=== PATIENT | male | born 1980 | race Hispanic/Latino ===

== ENCOUNTER 2019-08-27 20:29 | Emergency (ER) | payer BC ==
--- NOTE | 2019-08-27 21:11 | RAD REPORT ---
EXAM DESCRIPTION: RAD - Chest Single View - 08/27/2019 8:58 pm CLINICAL HISTORY: CHEST PAIN TECHNIQUE: AP portable chest image was obtained 08/27/2019 8:58 pm . FINDINGS: Lung volumes are low. No peripheral mass or consolidation. No failure or volume overload s uspected. Heart and vasculature are normal. No measurable pleural effusion and no pneumothorax. No ac [place] bony abnormality seen. No acute aortic findings suspected. IMPRESSION: No acute cardiopulmonary process.
[2019-08-27 21:16] LABS: Absolute Lymphocytes (CBC) 3.3 K/uL (0.7-4.9); Basophils % 0.5 % (0-1.3); Hematocrit 45.1 % (39.6-49.0); Lymphocytes % 37.9 % (15.3-44.8); MPV 8.3 fL (7.6-11.3); RBC Red Blood Cell Count 5.14 M/uL (4.33-5.43)
[2019-08-27 21:18] LABS: Protime INR 1.07
[2019-08-27] MEDS ORDERED: MAGNE/ALUM HYDROXD 30 ML UCUP ONE (21:51)
[2019-08-27] MEDS ORDERED: LIDOCAINE VISCOUS 2% SOLN 15 ML UDC ONE (21:51)
[2019-08-27 21:53] LABS: ALT/SGPT 43 U/L (12-78); Albumin 4.2 g/dL (3.4-5.0); Alkaline Phosphatase 99 U/L (45-117); BUN Blood Urea Nitrogen 13 mg/dL (7-18); Bicarbonate 27 mmol/L (21-32); Bilirubin Direct < 0.1 mg/dL (0-0.2); Bilirubin Total 0.4 mg/dL (0.2-1.0); Glucose Level 132 mg/dL (74-106); NT PRO-BNP 42 pg/mL (<125); Protein, Total 7.6 g/dL (6.4-8.2); Sodium Level 141 mmol/L (136-145); Troponin (Emerg Dept Use Only) < 0.02 ng/mL (0.0-0.045)
[2019-08-27 22:01] LABS: AST/SGOT 23 U/L (15-37); Magnesium 2.3 mg/dL (1.8-2.4); Potassium 3.8 mmol/L (3.5-5.1)
--- NOTE | 2019-08-28 01:12 | ER ---
Nurse's Notes [facility] Name: Sanford Millard Jr Age: 39 yrs Sex: Male : 1980 Arrival Date: 08/27/2019 Time: 20:31 Bed 4 Private MD: Diagnosis: Other chest pain Presentation: 08/26 20:39 Chief complaint: Patient states: i have chest pain and epigastric pain and nausea that mg2 started 2 hours ago. Coronavirus screen: Proceed with normal triage. Patient denies a cough. Patient denies shortness of breath or difficulty breathing. Patient denies measured and/or subjective temperature greater than 100.4F prior to today's visit. Patient denies travel on a cruise ship or to a country the [facility] currently lists as an affected area. Patient denies contact with known and/or suspected case of COVID-19. Ebola Screen: No symptoms or risks identified at this time. Initial Sepsis Screen: Does the patient meet any 2 criteria? No. Patient's initial sepsis screen is negative. Does the patient have a suspected source of infection? No. Patient's initial sepsis screen is negative. Risk Assessment: Do you want to hurt yourself or someone else? Patient reports no desire to harm self or others. Onset of symptoms was August 27, 2019. 20:39 Method Of Arrival: Ambulatory mg2 20:39 Acuity: YOVANI 3 mg2 Historical: - Allergies: 20:43 No Known Allergies; mg2 - Home Meds: 20:43 cholesterol medicine [Active]; losartan oral oral [Active]; mg2 - PMHx: 20:43 Hyperlipidemia; Hypertension; mg2 - PSHx: 20:43 shoulder sx; mg2 - Immunization history:: Flu vaccine is not up to date. - Social history:: Smoking status: Patient denies any tobacco usage or history of. Patient uses alcohol, occasionally. Patient/guardian denies using street drugs, IV drugs. Screenin:43 Abuse screen: Denies threats or abuse. Denies injuries from another. Nutritional mg2 screening: No deficits noted. Tuberculosis screening: No symptoms or risk factors identified. Fall Risk IV access (20 points). Assessment: 20:43 General: Appears in no apparent distress. comfortable, Behavior is calm, cooperative. mg2 Pain: Complains of pain in chest Pain radiates to abdomen Pain began gradually, 2 hours ago. Neuro: Level of Consciousness is awake, alert, obeys commands, Oriented to person, place, time, situation. Cardiovascular: Capillary refill < 3 seconds Patient's skin is warm and dry. Respiratory: Airway is patent Respiratory effort is even, unlabored, Respiratory pattern is regular, symmetrical. GI:. GI: Reports epigastric pain, nausea. : No signs and/or symptoms were reported regarding the genitourinary system. EENT: No signs and/or symptoms were reported regarding the EENT system. Derm: Skin is intact, is healthy with good turgor, Skin is pink, warm \T\ dry. normal. Musculoskeletal: Circulation, motion, and sensation intact. Capillary refill < 3 seconds. 23:11 Reassessment: Patient appears in no apparent distress at this time. Patient and/or mg2 family updated on plan of care and expected duration. Pain level reassessed. Patient is alert, oriented x 3, equal unlabored respirations, skin warm/dry/pink. 08/27 00:57 Reassessment: Patient appears in no apparent distress at this time. Patient and/or mg2 family updated on plan of care and expected duration. Pain level reassessed. Patient is alert, oriented x 3, equal unlabored respirations, skin warm/dry/pink. Vital Signs: 08/26 20:39 BP 166 / 102; Pulse 91; Resp 18; Temp 98.1; Pulse Ox 99% on R/A; Weight 122.47 kg; mg2 Height 5 ft. 11 in. (180.34 cm); 20:54 BP 141 / 94; mg2 23:11 BP 132 / 76; Pulse 76; Resp 18; Pulse Ox 100% on R/A; mg2 08/27 00:57 Pulse 76; Resp 18; Pulse Ox 100% on R/A; Pain 1/10; mg2 08/26 20:39 Body Mass Index 37.66 (122.47 kg, 180.34 cm) mg2 ED Course: 08/26 20:31 Patient arrived in ED. ds1 20:36 Bucky Kay MD is Attending Physician. tw4 20:39 Yoni Sanchez, GILLES is Primary Nurse. mg2 20:41 Triage completed. mg2 20:41 Arm band placed on. mg2 20:43 Patient has correct armband on for positive identification. human services worker on. Pulse mg2 ox on. NIBP on. Door closed. Warm blanket given. 20:45 No provider procedures requiring assistance completed. Patient maintains SpO2 mg2 saturation greater than 95% on room air. 20:54 Inserted saline lock: 20 gauge in left antecubital area, using aseptic technique. Blood mg2 collected. 20:57 XRAY Chest (1 view) In Process Unspecified. EDME 08/27 01:30 IV discontinued, intact, bleeding controlled, No redness/swelling at site. Pressure mg2 dressing applied. Administered Medications: 08/26 21:48 Drug: GI Cocktail without - (Maalox Suspension 30 ml, Lidocaine Liquid 2 % 15 mg2 ml) Route: PO; 23:11 Follow up: Response: No adverse reaction mg2 Outcome: 08/27 01:11 Discharge ordered by . tw4 01:30 Discharged to home ambulatory. mg2 01:30 Condition: stable 01:30 Discharge instructions given to patient, Instructed on discharge instructions, follow up and referral plans. Demonstrated understanding of instructions, follow-up care. 01:31 Patient left the ED. mg2 Signatures: Dispatcher [employer] [facility] Brenda Boyer ds1 Bucky Kay MD MD tw4 Yoni Sanchez, RN RN mg2
--- NOTE | 2019-08-28 01:12 | EDPHYS ---
Physician Documentation [facility] Name: Sanford Millard Jr Age: 39 yrs Sex: Male : 1980 Arrival Date: 08/27/2019 Time: 20:31 Bed 4 Private MD: ED Physician Bucky Kay HPI: 08/27 00:23 This 39 yrs old Male presents to ER via Ambulatory with complaints of Chest tw4 Pain. 00:23 The patient or guardian reports chest pain that is located primarily in the anterior tw4 chest wall. Onset: today. The pain does not radiate. Associated signs and symptoms: The patient has no apparent associated signs or symptoms. The chest pain is described as dull. Modifying factors: The symptoms are alleviated by nothing. the symptoms are aggravated by nothing. Severity of pain: At its worst the pain was moderate in the emergency department the pain is unchanged. Historical: - Allergies: 08/26 20:43 No Known Allergies; mg2 - Home Meds: 20:43 cholesterol medicine [Active]; losartan oral oral [Active]; mg2 - PMHx: 20:43 Hyperlipidemia; Hypertension; mg2 - PSHx: 20:43 shoulder sx; mg2 - Immunization history:: Flu vaccine is not up to date. - Social history:: Smoking status: Patient denies any tobacco usage or history of. Patient uses alcohol, occasionally. Patient/guardian denies using street drugs, IV drugs. ROS: 08/27 00:23 Constitutional: Negative for fever, chills, and weight loss, Eyes: Negative for injury, tw4 pain, redness, and discharge, Neck: Negative for injury, pain, and swelling, Respiratory: Negative for shortness of breath, cough, wheezing, and pleuritic chest pain, Abdomen/GI: Negative for abdominal pain, nausea, vomiting, diarrhea, and constipation, Back: Negative for injury and pain, MS/Extremity: Negative for injury and deformity, Skin: Negative for injury, rash, and discoloration. Cardiovascular: Positive for chest pain, Negative for edema, orthopnea, palpitations, paroxysmal nocturnal dyspnea. Exam: 00:23 Constitutional: This is a well developed, well nourished patient who is awake, alert, tw4 and in no acute distress. Head/Face: Normocephalic, atraumatic. Eyes: Pupils equal round and reactive to light, extra-ocular motions intact. Lids and lashes normal. Conjunctiva and sclera are non-icteric and not injected. Cornea within normal limits. Periorbital areas with no swelling, redness, or edema. Chest/axilla: Normal chest wall appearance and motion. Nontender with no deformity. No lesions are appreciated. Cardiovascular: Regular rate and rhythm with a normal S1 and S2. No gallops, murmurs, or rubs. Normal PMI, no JVD. No pulse deficits. Respiratory: Lungs have equal breath sounds bilaterally, clear to auscultation and percussion. No rales, rhonchi or wheezes noted. No increased work of breathing, no retractions or nasal flaring. Abdomen/GI: Soft, non-tender, with normal bowel sounds. No distension or tympany. No guarding or rebound. No evidence of tenderness throughout. Back: No spinal tenderness. No costovertebral tenderness. Full range of motion. MS/ Extremity: Pulses equal, no cyanosis. Neurovascular intact. Full, normal range of motion. Neuro: Awake and alert, GCS 15, oriented to person, place, time, and situation. Cranial nerves II-XII grossly intact. Motor strength 5/5 in all extremities. Sensory grossly intact. Cerebellar exam normal. Normal gait. Vital Signs: 08/26 20:39 BP 166 / 102; Pulse 91; Resp 18; Temp 98.1; Pulse Ox 99% on R/A; Weight 122.47 kg; mg2 Height 5 ft. 11 in. (180.34 cm); 20:54 BP 141 / 94; mg2 23:11 BP 132 / 76; Pulse 76; Resp 18; Pulse Ox 100% on R/A; mg2 08/27 00:57 Pulse 76; Resp 18; Pulse Ox 100% on R/A; Pain 1/10; mg2 08/26 20:39 Body Mass Index 37.66 (122.47 kg, 180.34 cm) mg2 MDM: 08/26 20:48 Patient medically screened. tw4 08/27 01:08 Differential diagnosis: acute myocardial infarction, acute pericarditis, cholecystitis, tw4 Cholelithiasis pancreatitis, peptic ulcer disease, pulmonary embolus, thoracic aortic disection, unstable angina. HEART Score: History: Slightly Suspicious (0), ECG: Normal (0), Age: < or = 45 years (0), Risk Factors: No Risk Factors Known (0), Troponin: < or = 1 x Normal Limit (0). Data reviewed: vital signs, nurses notes. Data reviewed: lab test result(s), cardiac enzymes, CBC, hepatic panel. Data interpreted: Pulse oximetry: Interpretation: normal. Counseling: I had a detailed discussion with the patient and/or guardian regarding: the historical points, exam findings, and any diagnostic results supporting the discharge/admit diagnosis. Special discussion: I discussed with the patient/guardian in detail that at this point there is no indication for admission to the hospital. It is understood, however, that if the symptoms persist or worsen the patient needs to return immediately for re-evaluation. 08/26 20:46 Order name: Basic Metabolic Panel; Complete Time: 23:44 08/26 23:44 Interpretation: Normal except: CL 108; GFR 80; GLUC 132. 08/26 20:46 Order name: CBC with Diff; Complete Time: 23:44 08/26 23:44 Interpretation: Within normal limits. 08/26 20:46 Order name: LFT's; Complete Time: 23:44 08/26 20:46 Order name: Magnesium; Complete Time: 23:44 08/26 23:44 Interpretation: Within normal limits. 08/26 20:46 Order name: NT PRO-BNP; Complete Time: 23:44 08/26 23:45 Interpretation: Within normal limits: NT PRO-BNP 42. 08/26 20:46 Order name: PT-INR; Complete Time: 23:44 08/26 23:44 Interpretation: Within normal limits: PT 12.6. 08/26 20:46 Order name: Troponin (emerg Dept Use Only); Complete Time: 23:44 08/26 23:45 Interpretation: TROPED < 0.02. 08/26 20:46 Order name: XRAY Chest (1 view); Complete Time: 23:44 08/26 20:46 Order name: EKG; Complete Time: 20:47 08/26 20:46 Order name: Cardiac monitoring; Complete Time: 20:54 08/26 20:46 Order name: EKG - Nurse/Tech; Complete Time: 20:54 /23 20:46 Order name: IV Saline Lock; Complete Time: 20:54 4 08/26 23:45 Order name: Troponin (emerg Dept Use Only); Complete Time: 01:04 tw4 08/27 01:04 Interpretation: Within normal limits: TROPED < 0.02. tw4 08/26 20:46 Order name: Labs collected and sent; Complete Time: 20:54 4 08/26 20:46 Order name: O2 Per Protocol; Complete Time: 20:54 tw4 08/26 20:46 Order name: O2 Sat Monitoring; Complete Time: 20:54 tw4 EC:23 Rate is 94 beats/min. Rhythm is regular. QRS [place] is Normal. ME interval is normal. QRS tw4 interval is normal. QT interval is normal. No Q waves. T waves are Normal. No ST changes noted. Clinical impression: Normal ECG. Interpreted by me. Reviewed by me. Administered Medications: 08/26 21:48 Drug: GI Cocktail without - (Maalox Suspension 30 ml, Lidocaine Liquid 2 % 15 mg2 ml) Route: PO; 23:11 Follow up: Response: No adverse reaction mg2 Disposition: 08/28/19 01:11 Discharged to Home. Impression: Other chest pain. - Condition is Stable. - Discharge Instructions: Nonspecific Chest Pain. - Medication Reconciliation Form, Thank You Letter, Antibiotic Education, Prescription Opioid Use form. - Follow up: Private Physician; When: Upon discharge from the Emergency Department; Reason: Recheck today's complaints, Continuance of care, Re-evaluation by your physician. - Problem is new. - Symptoms have improved. Signatures: Dispatcher [employer] [facility] Bucky Kay MD MD tw4 Yoni Sanchez RN RN mg2 Corrections: (The following items were deleted from the chart) 08/27 01:31 01:11 08/28/2019 01:11 Discharged to Home. Impression: Other chest pain. Condition is mg2 Stable. Forms are Medication Reconciliation Form, Thank You Letter, Antibiotic Education, Prescription Opioid Use. Follow up: Private Physician; When: Upon discharge from the Emergency Department; Reason: Recheck today's complaints, Continuance of care, Re-evaluation by your physician. Problem is new. Symptoms have improved. tw4
[2019-08-28 01:45] VITALS: TEMP 98.1
[2019-08-28 01:47] VITALS: BP 132/76; O2SAT 100
--- NOTE | 2019-08-28 14:38 | EKG ---
Test Date: 2019-08-27 Test Time: 20:41:05 Construction Foreman: PAKO MEASUREMENT RESULTS: Intervals: Rate: 94 WV: 182 QRSD: 100 QT: 356 QTc: 445 [place]: P: 49 WV: 182 QRS: 38 T: 18 INTERPRETIVE STATEMENTS: Normal sinus rhythm Normal ECG No previous ECG available for comparison Electronically Signed On 08-28-19 14:35:50 CDT by Emerson Taylor
== END 2019-08-28 01:31 | disposition home or self-care (01) ==
LOC: ER 20:29
DX: R07.89 Other chest pain (principal); I10 Essential (primary) hypertension; E78.5 Hyperlipidemia, unspecified
CPT/HCPCS: 36415; 71045; 80048; 80076; 83735; 83880; 84484; 85025; 85610; 93005; 99285